=== PATIENT | male | born 1955 | race Caucasian/White ===

== ENCOUNTER → 2021-07-21 08:09 | Outpatient (CLI) | payer MEDICARE, SELFPAY ==
[2021-07-21 08:46] LABS: Chloride 103 mmol/L (98-107)
[2021-07-21 08:47] LABS: Potassium 4.1 mmoL/L (3.5-5.1); Sodium 135 mmol/L (136-145)
[2021-07-21 08:49] LABS: Alanine Aminotransferase 41 U/L (12-78); Albumin Level 4.4 g/dl (3.5-5.0); Albumin/Globulin Ratio 1.5 (1.1-1.8); Alkaline Phosphatase 65 U/L (38-126); Anion Gap 6.1 mEq/L (5-15); Aspartate Amino Transferase 40 U/L (17-59); Bilirubin,Total 0.8 mg/dl (0.2-1.3); Blood Urea Nitrogen 20 mg/dl (9-20); Carbon Dioxide 30 mmol/L (22.0-30.0); Estimated Glomerular Filt Rate 84 ml/min (>60); GFR (African American) 102 ML/MIN (>60); Globulin 2.9 g/dL (1.3-3.2); Total Protein,Serum 7.3 g/dl (6.3-8.2)
[2021-07-21 08:50] LABS: Calcium 8.5 mg/dl (8.4-10.2); Cholesterol 159 mg/dl (140-200); Glucose 107 mg/dl (74-100); Triglycerides 103 mg/dl (30-150); VLDL Cholesterol 21 mg/dL (0-40)
[2021-07-21 09:01] LABS: Direct LDL Cholesterol 66.37 mg/dL (100-129)
[2021-07-21 09:19] LABS: Chol/HDL Ratio 2.7 (1-3.5); HDL Cholesterol 60 mg/dl (40-60)
== END ==
PROVIDERS: Visit Provider Clinical Nurse Specialist Adult Health
DX: E78.5 Hyperlipidemia, unspecified (principal); Z79.899 Other long term (current) drug therapy
CPT/HCPCS: 36415; 80053; 80061

== ENCOUNTER → 2023-02-03 11:30 | Outpatient (CLI) | payer MEDICARE, SELFPAY ==
[2023-02-03 13:24] LABS: Prostate Specific Ag Screen 2.4 ng/ml (0.0-4.0)
== END ==
PROVIDERS: Visit Provider Urology
DX: Z12.5 Encounter for screening for malignant neoplasm of prostate (principal)
CPT/HCPCS: 36415; G0103

== ENCOUNTER 2023-04-28 12:47 | Emergency (ER) | payer MEDICARE, SELFPAY ==
--- NOTE | 2023-04-28 12:47 | ECG_ITS ---
APPROVED REPORT Exam: Resting ECG HR:55 bpm ECG Measurements Heart Rate 55 AXES MI 166 P 22 QRSd 100 QRS -16 QT 408 T -59 QTc 396 Conclusion SINUS BRADYCARDIA NONSPECIFIC T-WAVE ABNORMALITY BORDERLINE ECG UNCONFIRMED REPORT Electronically signed by : Rickey Rome MD 04/29/2023 18:27:03
[2023-04-28 12:48] VITALS: BP 156/80; PULSE 57; RESP 18; TEMP 36.7; O2SAT 97; BMI 24.2
--- NOTE | 2023-04-28 13:02 | HMH.EDGENADL ---
Discharge Plan Disposition Patient Disposition: Home, Self-Care Condition: Good Referrals Follow up/Referrals: Provider,Referral, MD [Primary Care Provider] - See instructions Activity Restrictions/Add. Instructions Additional Instructions/Restrictions: Please follow-up with your filler shredder.Please return to the emergency department if you experience any new or worsening symptoms. Clinical Impressions Clinical Impression: Chest pain Qualifiers: Chest pain type: unspecified Qualified Code(s): R07.9 - Chest pain, unspecified Instructions Patient Instructions: DI for Atypical Chest Pain Discharge ED Provider: Forest Nowak Adult HPI General Chief complaint: Chest Pain Stated complaint: Chest pressure Time Seen by Provider: 04/28/23 12:55 Mode of Arrival: Ambulatory Source of Information: Patient Limitations: No Limitations Description of Symptoms (Recalled from ER Triage Doc. by RN): PT REPORTS CHEST TIGHTNESS AND NUMBNESS OF BILATERAL HANDS, RIGHT MORE THAN LEFT. DENIES SHORTNESS OF BREATH, N/V. REPORTS MOVING FIREWOOD YESTERDAY History of Present Illness HPI narrative: The patient presents with a chief complaint of numbness in the hands and tightness in the chest that started this morning at approximately 5:30 AM. They report no prior history of similar symptoms and deny experiencing shortness of breath, fever, or chills. The patient has a history of a heart attack in 2005 and is currently under the regular care of a filler shredder. Their last echocardiogram was performed two years ago, yielding normal results. Symptoms began while running on an 80-degree day, which subsequently turned into cold chills and anxiety. The patient has a past medical history of an acute anxiety reaction in the 1980s but denies any recent stressors. They are taking daily medications for their heart, including 81 mg of aspirin, atorvastatin, ezetimibe, and metoprolol. Related Data Allergies Allergy/AdvReac Type Severity Reaction Status Date / Time No Known Allergies Allergy Verified 04/28/23 12:[address] [facility] Disclaimer: The information contained in this section may have been updated after the patient was seen, as this information can be updated by other users. Social History Smoking Status: Never smoker alcohol intake: former current occupational status: other Travel in the last 8 weeks: None ROS Obtained: Yes Systems reviewed as appropriate & no additional complaints except as documented As per HPI Physical Exam General General appearance: alert and in no apparent distress Head Head exam: atraumatic and normocephalic Eye Eye exam: Present normal appearance Neck Neck exam: Present normal inspection Chest Chest inspection: Present normal inspection and symmetric chest wall rise Respiratory Respiratory exam: Present normal lung sounds bilaterally; Absent respiratory distress Cardiovascular Cardiovascular exam: Present regular rate and normal rhythm Abdominal Exam Abdominal exam: Present soft Neurological Exam Neurological exam: Present alert and oriented X3 Psychiatric Psychiatric exam: Present normal affect and normal mood Skin Skin exam: Present warm and dry Medical Decision Making Medical Records Medical records reviewed: Yes I reviewed the patient's medical records. Clem Inquiry Pt receiving controlled substance: No Vital Signs: 04/28/23 12:48 04/28/23 13:30 04/28/23 15:44 Temperature 98.0 F 98.0 F Temperature Source Oral Pulse Rate 61 75 Pulse Rate [Apical] 57 L Respiratory Rate 18 17 17 Blood Pressure 132/77 128/73 Blood Pressure [Right Arm] 156/80 H Blood Pressure Mean 107 Blood Pressure Mean [Right Arm] 105 Blood Pressure Source [Right Arm] Automatic Cuff Blood Pressure Position [Right Arm] Sitting 02 Sat by Pulse Oximetry 97 96 Oxygen Delivery Method Room Air Room Air Room Air Lab Data Lab Results 04/28/23 12:52: WBC 7.0, RBC 4.82, Hgb 15.3, Hct 45.8
--- NOTE | 2023-04-28 13:11 | PC.NURSE ---
DR CLARKE AT BEDSIDE
--- NOTE | 2023-04-28 13:12 | XR_ITS ---
FINAL REPORT CLINICAL HISTORY: . FINDINGS: CHEST TWO-VIEW The lungs are clear. There is no evidence of effusion or other pleural disease. The mediastinum as a normal appearance. The cardiac silhouette is unremarkable. IMPRESSION: No acute findings. Reviewed, Interpreted and Dictated by Noni Dixon MD Transcribed by Eze Carl Authenticated and [facility]
[2023-04-28 13:20] LABS: Chloride 102 mmol/L (98-107); Sodium 138 mmol/L (136-145)
[2023-04-28 13:21] LABS: Basophils % 0.2 % (0.1-2.0); Eosinophils # 0.1 K/mm3 (0.0-0.4); Eosinophils % 1.2 % (0.1-12.0); Hematocrit 45.8 % (42.0-52.0); Hemoglobin 15.3 g/dL (14.1-18.0); Lymphocytes # 2.2 K/mm3 (0.7-4.5); Mean Corpuscular HGB Conc 33.3 g/dL (31.8-35.4); Mean Corpuscular Hemoglobin 31.6 pg (27.0-31.2); Mean Corpuscular Volume 94.9 fl (80-94); Mean Platelet Volume 7.6 fl (7.4-10.4); Monocytes # 0.6 K/mm3 (0.1-1.0); Monocytes % 8.7 % (1.7-9.3); Neutrophils # 4.1 K/mm3 (1.8-7.8); Neutrophils % 58.9 % (37.0-80.0); Platelet Count 278 K/mm3 (142-424); Red Blood Count 4.82 M/mm3 (4.60-6.20); Red Cell Distribution Width 13.3 % (11.5-17.5)
[2023-04-28 13:22] LABS: Alanine Aminotransferase 37 U/L (12-78); Aspartate Amino Transferase 39 U/L (17-59); Blood Urea Nitrogen 16 mg/dl (9-20); Creatinine Clearance Estimated 66 mL/min (50-200); Estimated Glomerular Filt Rate 83 ml/min (>60); GFR (African American) 101 ML/MIN (>60)
[2023-04-28 13:23] LABS: Albumin Level 4.9 g/dl (3.5-5.0); Albumin/Globulin Ratio 1.5 (1.1-1.8); Alkaline Phosphatase 77 U/L (38-126); Calcium 9.4 mg/dl (8.4-10.2); Carbon Dioxide 29 mmol/L (22.0-30.0); Globulin 3.3 g/dL (1.3-3.2); Glucose 114 mg/dl (74-100); Total Protein,Serum 8.2 g/dl (6.3-8.2)
[2023-04-28 13:30] VITALS: BP 132/77; PULSE 61; RESP 17; O2SAT 96
[2023-04-28 13:36] LABS: Troponin I < 0.01 ng/ml (0.00-0.034)
[2023-04-28 15:44] VITALS: BP 128/73; PULSE 75; RESP 17; TEMP 36.7; O2SAT 98
== END 2023-04-28 15:50 | disposition home or self-care (01) ==
PROVIDERS: Emergency Provider Emergency Medicine
DX: R07.9 Chest pain, unspecified (principal); R00.1 Bradycardia, unspecified; R20.0 Anesthesia of skin; Z86.79 Personal history of other diseases of the circulatory system
CPT/HCPCS: 71046; 80053; 84484; 85025; 93005; 99284

== ENCOUNTER 2023-11-10 16:09 | Outpatient (CLI) | payer MEDICARE, SELFPAY ==
[2023-11-10 17:30] LABS: Basophils % 0.6 % (0.1-2.0); Eosinophils # 0.2 K/mm3 (0.0-0.4); Eosinophils % 3.5 % (0.1-12.0); Hematocrit 43.3 % (42.0-52.0); Hemoglobin 14.5 g/dL (14.1-18.0); Lymphocytes # 1.6 K/mm3 (0.7-4.5); Lymphocytes % 27.8 % (10-50); Mean Corpuscular HGB Conc 33.4 g/dL (31.8-35.4); Mean Corpuscular Hemoglobin 31.5 pg (27.0-31.2); Mean Corpuscular Volume 94.2 fl (80-94); Mean Platelet Volume 7.9 fl (7.4-10.4); Monocytes # 0.6 K/mm3 (0.1-1.0); Monocytes % 9.7 % (1.7-9.3); Neutrophils # 3.4 K/mm3 (1.8-7.8); Neutrophils % 58.4 % (37.0-80.0); Platelet Count 226 K/mm3 (142-424); Red Cell Distribution Width 13.7 % (11.5-17.5); White Blood Count 5.8 K/mm3 (4.8-10.8)
[2023-11-10 17:53] LABS: Alanine Aminotransferase 25 U/L (12-78); Albumin Level 4.4 g/dl (3.5-5.0); Alkaline Phosphatase 64 U/L (38-126); Anion Gap 13.3 mEq/L (5-15); Aspartate Amino Transferase 27 U/L (17-59); Bilirubin,Indirect 0.7 mg/dL (0.0-0.9); Bilirubin,Total 0.7 mg/dl (0.2-1.3); Bilirubin,Unconjugated 0.8 mg/dL (0.0-1.1); Blood Urea Nitrogen 19 mg/dl (9-20); Calcium 9.4 mg/dl (8.4-10.2); Carbon Dioxide 26 mmol/L (22.0-30.0); Chloride 104 mmol/L (98-107); Chol/HDL Ratio 2.5 (1-3.5); Cholesterol 163 mg/dl (140-200); Estimated Glomerular Filt Rate 96 ml/min (>60); GFR (African American) 116 ML/MIN (>60); Glucose 96 mg/dl (74-100); HDL Cholesterol 66 mg/dl (40-60); Magnesium 2.1 mg/dl (1.6-2.3); Potassium 4.3 mmoL/L (3.5-5.1); Sodium 139 mmol/L (136-145); Total Protein,Serum 6.9 g/dl (6.3-8.2); Triglycerides 169 mg/dl (30-150); VLDL Cholesterol 34 mg/dL (0-40)
[2023-11-10 18:05] LABS: Direct LDL Cholesterol 69.49 mg/dL (100-129)
[2023-11-10 18:27] LABS: Free T4 (Free Thyroxine) 0.78 ng/dl (0.78-2.19)
[2023-11-11 10:17] LABS: Vitamin B12 770 pg/mL (239-931)
[2023-11-11 10:31] LABS: Folate > 20.00 ng/mL
== END 2023-11-10 23:59 | disposition home or self-care (01) ==
LOC: LAB 16:11
PROVIDERS: Physician Assistant; Visit Provider Internal Medicine
DX: I25.10 Atherosclerotic heart disease of native coronary artery without angina pectoris; R93.1 Abnormal findings on diagnostic imaging of heart and coronary circulation; I10 Essential (primary) hypertension; E78.5 Hyperlipidemia, unspecified; D75.89 Other specified diseases of blood and blood-forming organs; Z85.47 Personal history of malignant neoplasm of testis
CPT/HCPCS: 36415; 80048; 80061; 80076; 82607; 82746; 83735; 84439; 84443; 85025

== ENCOUNTER 2024-10-10 08:24 | Day surgery (SDC) | payer MEDICARE, SELFPAY ==
[2024-10-10 09:07] VITALS: BP 118/82; PULSE 48; RESP 16; TEMP 36.6; O2SAT 98; BMI 23.8
[2024-10-10] MEDS: LACTATED RINGERS 1000ML 1,000 ML 50 ML IV (09:19)
--- NOTE | 2024-10-10 09:27 | P.PNANES_ITS ---
[facility] Disclaimer: The information contained in this section may have been updated after the patient was seen, as this information can be updated by other users. Medical History (Updated 10/10/24 @ 09:12 by Britany Shore RN) History of heart attack Aortic regurgitation History of testicular cancer HLD (hyperlipidemia) HTN (hypertension) Coronary artery disease Abnormal nuclear cardiac imaging test Surgical History (Updated 10/10/24 @ 09:12 by Britany Shore RN) History of appendectomy History of hernia surgery Hx of colonoscopy Family History (Updated 10/10/24 @ 09:12 by Britany Shore RN) Other Heart attack Social History (Updated 10/10/24 @ 09:12 by Britany Shore RN) Smoking Status: Never smoker alcohol intake: current substance use type: denies use current occupational status: retired Travel in the last 8 weeks?: None caffeine: No [facility] Anesthesia Checklist Patient Identification Patient Identification: Arm Band Structural Data Admitted From: Home Planned Operative Procedure/s: Colonoscopy Consent for Planned Operative Procedure(s) Verified: Yes Verified Documents: Surgical Consent and History and Physical NPO Status Verified Time NPO: 00:00 Additional verifications Anesthesia Reactions: No Airway Assessment Mallampati Score:: Class II C-Spine Mobility Assessed: Yes TMJ Mobility Assessed: Yes Dentition: Good Dentition Neurological Assessment Level of Consciousness: Awake, Alert and Appropriate Anesthesia Plan Anesthesia Risk discussed: Yes Anesthesia Plan: Verified ASA Class: III Anesthesia Type: MAC
--- NOTE | 2024-10-10 09:53 | EXP.HP ---
History of Present Illness *Admission Date: 10/10/24 *Reason for visit:: Screening/surveillance *History of present illness: Mr. Gamboa is a 69-year-old gentleman who is here for screening/surveillance colonoscopy. The examination is deemed medically necessary for screening/surveillance colonoscopy. The patient has been seen, interviewed and examined prior to the procedure by both myself and the anesthesia provider. [facility] Disclaimer: The information contained in this section may have been updated after the patient was seen, as this information can be updated by other users. Medical History (Updated 10/10/24 @ 10:03 by Andreas Tidwell II, MD) History of heart attack Aortic regurgitation History of testicular cancer HLD (hyperlipidemia) HTN (hypertension) Coronary artery disease Abnormal nuclear cardiac imaging test Surgical History (Updated 10/10/24 @ 09:12 by Britany Shore RN) History of appendectomy History of hernia surgery Hx of colonoscopy Family History (Updated 10/10/24 @ 09:12 by Britany Shore RN) Other Heart attack Social History (Updated 10/10/24 @ 09:28 by René Alaniz CRNA) Smoking Status: Never smoker alcohol intake: current substance use type: denies use current occupational status: retired Travel in the last 8 weeks?: None caffeine: No Have you lived/traveled outside US in past 30 days?: No Contact w/someone who lives/traveled outside US past 30 days?: No Exposure to someone with infectious disease in past 14 days?: No Do you have a fever (greater than 100.4 F or 38 C)?: No Have you tested positive for COVID-19?: No Exposed to someone with COVID-19 in past 14 days?: No Do you have a sore throat?: No Do you have a cough?: No Do you have any weakness?: No Are you experiencing any nausea/vomitting?: No Do you have any diarrhea?: No Are you experiencing any unusual bleeding?: No Do you have any muscle aches/pain?: No Do you have any abdominal pain?: No Are you experiencing loss of taste or smell?: No Other Medical History Have you received the Pneumonia Vaccine: No Review of Systems Review of Systems Review of systems (narrative): Negative *Cardiovascular Comments: Negative *Gastrointestinal Comments: Negative *Genitourinary Comments: Negative *Musculoskeletal Comments: Negative *Neurologic Comments: Negative Meds Home Medications and Allergies Home Medications ?Medication ?Instructions ?Recorded ?Confirmed ?Type aspirin 81 mg tablet 81 mg PO DAILY 11/10/23 10/10/24 History atorvastatin 80 mg tablet 80 mg PO DAILY 11/10/23 10/10/24 History ezetimibe 10 mg tablet 10 mg PO DAILY 11/10/23 10/10/24 History metoprolol succinate 25 mg 25 mg PO DAILY #30 tabs 07/14/24 10/10/24 Rx tablet,extended release 24 hr (Toprol XL) sodium,potassium,mag sulfates 17.5 See Rx Instructions PO .COMPLEX 09/26/24 Rx gram-3.13 gram-1.6 gram oral soln #354 mL (Suprep Bowel Prep Kit) New Prescriptions to Start Prescriptions: Allergies Allergy/AdvReac Type Severity Reaction Status Date / Time No Known Allergies Allergy Verified 10/10/24 09:04 Exam Data for Last 24 hours Vital signs and Labs for Last 24 Hours: Temp Pulse Resp BP Pulse Ox O2 Del Method 97.8 F 48 L 16 118/82 98 Room Air 10/10/24 09:07 10/10/24 09:07 10/10/24 09:07 10/10/24 09:07 10/10/24 09:07 10/10/24 09:07 I & O for Last 24 hours: Intake & Output 10/07/24 10/08/24 10/09/24 10/10/24 23:59 23:59 23:59 23:59 Weight 148 lb *Routine HEENT Exam Head: Present normocephalic Eye: Present EOMI and PERRL ENT: Present mucous membranes moist *Routine Neck Exam Neck: Present supple *Routine Respiratory Exam Respiratory: Present CTA bilaterally *Routine Cardiovascular Exam Cardiovascular: Present RRR *Routine Abdominal Exam Abdominal: Present soft and normoactive bowel sounds; Absent tenderness *Routine Rectal Exam Rectal:: deferred *Routine Genitalia Exam Genitalia:: deferred *Routine Extremities Exam Extremities: Absent cyanosis, clubbing or edema *Routine Skin Exam Skin: Present warm; Absent rash *Routine Neurological Exam Neurological: Present alert and oriented X3 Assessment and Plan *Assessment and plan (1) Screening for colon cancer: Status: Acute Category: Medical Code(s): Z12.11 - Encounter for screening for malignant neoplasm of colon (2) History of testicular cancer: Status: Acute Category: Medical Code(s): Z85.47 - Personal history of malignant neoplasm of testis Plan A/P: 1. Screening for colon cancer is the preprocedural diagnosis. The patient will be anesthetized/sedated using MAC sedation. The patient has been seen and examined. Cardiac and lung assessment prior to the examination is stable. Proceed with planned surveillance colonoscopy.
[2024-10-10 09:59] VITALS: O2SAT 100
--- NOTE | 2024-10-10 10:04 | P.PCN_ITS ---
[facility] Procedure Note Date: 10/10/24 Time: 10:18 Procedure Note:: Colonoscopy Procedure Report: Colonoscopy with cold snare polypectomy Endoscopist: Andreas Tidwell II, MD Referring physician: BEATRICE Saxena Date of Procedure: October 10, 2024 Equipment: Olympus 190 variable stiffness pediatric colonoscope Sedation: MAC sedation Indication: Mr. Gamboa is a 69-year-old gentleman who is here for follow-up screening/surveillance colonoscopy. His last colonoscopy was in 2018 ([facility]) and was normal. 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 He has been in long-term remission. He reports no abdominal pain, weight loss, change in his bowel habits or rectal bleeding. He reports no family history of colon cancer. Procedure: Prior to the procedure, a history and physical exam was performed, and patient's medications and allergies were reviewed. The risks, benefits and alternatives of the sedation and procedure were discussed with the patient. All questions were answered and informed consent was obtained. The patient was brought to the procedure room. Patient identification and proposed procedure were verified by the physician and the nurse. The patient was placed in a left lateral decubitus position and the scope was passed under direct vision. Throughout the procedure, the patient's blood pressure, pulse, and oxygen saturations were monitored continuously. The colonoscopy was accomplished without difficulty. The patient tolerated the procedure well. Findings: On digital rectal examination there was normal rectal tone. There were no external hemorrhoids. The prostate was 2+, smooth, soft, symmetric without nodules. The colonoscope was introduced through the anal canal to the rectum and advanced to the cecum. The ileocecal valve and appendiceal orifice were identified. The scope was advanced a short distance into the ileum which appeared grossly normal. The scope was then withdrawn into the colon. There was a single 3 to 4 mm polyp in the ascending colon removed via cold snare polypec vivek. The remaining cecum, ascending, transverse, descending, sigmoid and rectum were grossly normal. There were no other mucosal abnormalities identified. Upon retroflexion within the rectum there were grade 1-2 internal hemorrhoids. The preparation was excellent throughout with [place] Preparation Score of 9. The cecal time was 12 minutes. Impression: 1. Diminutive 3 to 4 mm ascending polyp 2. Grade 1-2 internal hemorrhoids Plan: I will follow-up the polyp histology and recommend repeat surveillance colonoscopy again in 7 to 10 years based upon the pathology.
[2024-10-10 10:23] VITALS: BP 96/60; PULSE 61; RESP 16; TEMP 36.6; O2SAT 96
[2024-10-10 10:33] VITALS: BP 103/63; PULSE 54; RESP 16; TEMP 36.2; O2SAT 96
[2024-10-10 10:43] VITALS: BP 100/61; PULSE 52; RESP 18; TEMP 36.1; O2SAT 99
[2024-10-10 10:53] VITALS: BP 112/72; PULSE 50; RESP 18; TEMP 36; O2SAT 100
== END 2024-10-10 11:12 | disposition home or self-care (01) ==
PROVIDERS: PCP Nurse Practitioner Family; Visit Provider Internal Medicine Gastroenterology
PROC: 0DJD8ZZ Inspection of Lower Intestinal Tract, Via Natural or Artificial Opening Endoscopic (ICD-10-PCS; CPT 45378; principal; 2024-10-10 10:00)
DX: Z12.11 Encounter for screening for malignant neoplasm of colon (principal); Z85.47 Personal history of malignant neoplasm of testis; K63.5 Polyp of colon; K64.8 Other hemorrhoids
CPT/HCPCS: 45385; J7120

== ENCOUNTER 2024-10-19 10:04 | Outpatient (CLI) | payer MEDICARE, SELFPAY ==
[2024-10-19 10:26] LABS: Basophils % 0.4 % (0.1-2.0); Eosinophils # 0.1 Kmm3 (0.0-0.4); Eosinophils % 2.2 % (0.1-12.0); Hematocrit 40.6 % (42.0-52.0); Hemoglobin 13.6 g/dL (14.1-18.0); Immature Granulocytes # 0.01 10^3uL; Immature Granulocytes % 0.2 %; Lymphocytes # 1.6 K/mm3 (0.7-4.5); Lymphocytes % 29.1 % (10-50); Mean Corpuscular HGB Conc 33.5 g/dL (31.8-35.4); Mean Corpuscular Hemoglobin 30.8 pg (27.0-31.2); Mean Corpuscular Volume 92.1 fl (80-94); Mean Platelet Volume 8.9 fl (7.4-10.4); Monocytes # 0.6 K/mm3 (0.1-1.0); Monocytes % 9.9 % (1.7-9.3); Neutrophils # 3.2 K/mm3 (1.8-7.8); Neutrophils % 58.2 % (37.0-80.0); Nucleated Red Blood Cells # 0 10^3/uL; Nucleated Red Blood Cells % 0 %; Platelet Count 270 K/mm3 (142-424); Red Blood Count 4.41 M/mm3 (4.60-6.20); Red Cell Distribution Width 12.7 % (11.5-17.5); Red Cell Distribution Width-SD 42.4 fL; White Blood Count 5.6 K/mm3 (4.8-10.8)
[2024-10-19 10:36] LABS: Alanine Aminotransferase 23 U/L (12-78); Albumin Level 4.3 g/dl (3.5-5.0); Alkaline Phosphatase 63 U/L (38-126); Anion Gap 8.4 mEq/L (5-15); Aspartate Amino Transferase 33 U/L (17-59); Blood Urea Nitrogen 17 mg/dl (9-20); Calcium 9.1 mg/dl (8.4-10.2); Carbon Dioxide 28 mmol/L (22.0-30.0); Chloride 107 mmol/L (98-107); Chol/HDL Ratio 2.1 (1-3.5); Cholesterol 120 mg/dl (140-200); Estimated Glomerular Filt Rate 95 ml/min (>60); GFR (African American) 115 ML/MIN (>60); Glucose 99 mg/dl (74-100); HDL Cholesterol 56 mg/dl (40-60); Potassium 4.4 mmoL/L (3.5-5.1); Sodium 139 mmol/L (136-145); Total Protein,Serum 6.9 g/dl (6.3-8.2); Triglycerides 102 mg/dl (30-150); VLDL Cholesterol 20 mg/dL (0-40)
[2024-10-19 10:47] LABS: Direct LDL Cholesterol 41.97 mg/dL (100-129)
[2024-10-19 11:07] LABS: Thyroid Stimulating Hormone 2.94 uIU/mL (0.465-4.68)
[2024-10-19 11:33] LABS: Free T4 (Free Thyroxine) 0.76 ng/dl (0.78-2.19)
== END 2024-10-19 23:59 | disposition home or self-care (01) ==
LOC: LAB 10:05
PROVIDERS: PCP Nurse Practitioner Family; Visit Provider Internal Medicine
DX: I35.1 Nonrheumatic aortic (valve) insufficiency (principal); E78.49 Other hyperlipidemia; I10 Essential (primary) hypertension; I25.10 Atherosclerotic heart disease of native coronary artery without angina pectoris
CPT/HCPCS: 36415; 80048; 80061; 80076; 84439; 84443; 85025

== ENCOUNTER 2024-10-25 08:02 | Outpatient (CLI) | payer MEDICARE, SELFPAY ==
--- NOTE | 2024-10-25 08:00 | CA_ITS ---
APPROVED REPORT EXAM: Comprehensive 2D, Doppler, and color-flow Echocardiogram Sports Book Writer: Patti Sewell CRT Ht: 5 ft 6 in Wt: 151lbs BSA: 1.77 BP: 104/68 mmHg Indications: CAD, Hyperlipidemia, Hypertension/HDD Mild to mod AI per echo from outside hospital 2D Dimensions LA Volume 37.30 mL LA Volume Index 20.50 mL/m2 (M/F) 16-34 M-Mode Dimensions RVDd 2.69 cm (0.9-2.6) LA Diam 3.12 cm (1.9-4.0) LVDd 4.80 cm (3.5-5.7) LVDs 3.14 cm (3.5-5.7) IVSd 1.14 cm (0.6-1.1) PWd 0.91 cm (0.6-1.1) EF (Teich) 63.60% FS 34.60% EDV (Teich) 107.50 mL TAPSE 1.98 (<1.7) ESV (Teich) 39.10 mL LV Diastology E Decel Time 297 (160-240 msec) E/A Ratio 0.54 MED A' 11.20 cm/s LAT A' 11.10 cm/s Aortic Valve AI PHT 605.00 ms AO Peak GR. 17.20 mmHg Mitral Valve MV A Velocity 80.0 (40-130 cm/s) E/A Ratio 0.54 Pulmonary Valve PV Peak Velocity 150.0 (50-150 cm/s) Tricuspid Valve TR P. Velocity 231.00 cm/s RAP Estimate 10.00 mmHg RVSP 31.40 mmHg Left Ventricle The left ventricle is normal size. The left ventricular systolic function is normal. The left ventricular ejection fraction is within the normal range. There is normal left ventricular wall thickness. There is normal LV segmental wall motion. The left ventricular diastolic function is normal. LVEF is 55%. Right Ventricle The right ventricle is normal size. The right ventricular systolic function is normal. Atria Left atrium is mildly dilated. Right atrium is mildly dilated. There is no Doppler evidence of interatrial shunt. Aortic Valve The aortic valve is mildly thickened. Aortic sclerosis is present, but no evidence of hemodynamically significant aortic stenosis. Mild aortic regurgitation. Mitral Valve The mitral valve leaflets are mildly thickened. No evidence of mitral valve stenosis. Mild mitral regurgitation. Tricuspid Valve Tricuspid valve is grossly normal in structure and function. Mild tricuspid regurgitation. RVSP is 20-25 mmHg. Pulmonic Valve The pulmonary valve is normal in structure. Mild pulmonic regurgitation. Great Vessels The aortic root is normal in size. The ascending aorta is borderline dilated, measuring 3.7 cm in diameter. IVC is normal in size and collapses >50% with inspiration. Pericardium There is no pericardial effusion. Other Information Study Quality: Fair Conclusion Normal biventricular systolic function. Mild biatrial dilation. Mild AR, mild MR, mild TR, mild PI. The ascending aorta is borderline dilated, measuring 3.7 cm in diameter. Electronically signed by : Belinda Gonzáles MD 10/30/2024 22:45:29
== END 2024-10-25 23:59 | disposition home or self-care (01) ==
LOC: RT 08:04
PROVIDERS: PCP Nurse Practitioner Family; Visit Provider Internal Medicine
DX: I08.8 Other rheumatic multiple valve diseases (principal); I11.9 Hypertensive heart disease without heart failure; I25.10 Atherosclerotic heart disease of native coronary artery without angina pectoris; E78.5 Hyperlipidemia, unspecified; I77.810 Thoracic aortic ectasia
CPT/HCPCS: 93306

== ENCOUNTER 2025-02-18 09:24 | Outpatient (CLI) | payer MEDICARE, SELFPAY ==
--- OUTSIDE RECORDS SUMMARY | 2024-09-03 17:30 | XMS_ITS ---
Author Organization [facility] Address [address] [address] [place] [address] Care Team Providers Care Mri Tech Name Role Phone Tamela Shore Primary Care Provider TAMELA SHORE Unavailable Unavaila ble Migration, Provider Unavailable Unavailable REASON FOR VISIT [facility] To [facility] Conversion Encounter Medications Medication SIG (Take, Route, Frequency, Duration) Notes Start Date End Date Status Atorvastatin Calcium 80 MG 1 tab(s) oral ly once a day Active Metoprolol Succinate ER 25 MG 1/2 tab(s) orally twice a day Active Ezetimibe 10 MG 1 tab(s) orally once a day Active Aspirin 81 MG 1 tab(s) orally once a day Active Encounters Encounter Location Date Provider Diagnosis [facility] [address] [place] [address] [address] [place] [address] 09/03/2024 Provider Migration Plan Of Treatment Next Appt Details Provider Name:Tamela Brandt ce, 02/23/2025 09:15:00 AM, [address] [place] [address], [place], [place], [address], Progress Notes * Dov RODRIGUEZDOB:[birth year] (69 yo M)Acc No.[id number]:09/03/2024 Patient: Cassidy Dov LOPEZ Provider: Silver simeon Migration :1955 A ge:69 Y S ex:Male Date:09/03/2024 Address:[address] [place] [address] [place], [id number] Pcp:Tamela Shore Subjective: * Chief Complaints: * 1 . [facility] To [facility] Conversion Encounter. * Medical History: * Medications: T aking Aspirin 81 MG Tablet Delayed Release 1 tab(s) orally once a day , Taking Ezetimibe 10 MG Tablet 1 tab(s) orally once a day , Taking Metoprolol Succinate ER 25 MG Tablet Extended Release 24 Hour 1/2 tab(s) orally twice a day , Taking Atorvastatin Calcium 80 MG Tablet 1 tab(s) orally once a day Objective: * Vitals: Assessment: Plan: * Treatment: * * Electronic signature of Ashkan aj Migration on 02/18/2025 at 09:31 AM EDT Sign off status: Pending * Provider: Silver simeon Migration Date: 0 09/03/2024 Generated for Jason tobias/Gary/Chrissy on: 0 02/18/2025 09:31 AM EDT
--- OUTSIDE RECORDS SUMMARY | 2024-12-21 09:00 | XMS_ITS | Encounter Summary ---
Author Organization [facility] Address [address] [place] [address] Care Team Providers Care Cheerleading Coach Name Role Phone Tamela Shore APRN Primary Care Provid er Reason for Visit * Reason Comments Follow-up 6 month Encounter Details Date Type Department Care Team (Late st Contact Info) Description 12/21/2024 9:00 AM EDT Office Visit [facility] [address] [facility] [place] [address] Randell Multani MD [address] [facility] [address] [place] [address] Coronary artery disease involving [place] coronary artery of [place] heart without angina pectoris (Primary Dx) Social History Tobacco Use Types Packs/Day Years Used Date Smoking Tobacco: Never Smokeless Tobacco: Never Tobacco Cessation:Counseling Given: Not Answered Alcohol Use Standard Drinks/Week Comments Yes 0 (1 standard drink = 0.6 oz pur e alcohol) ON OCCASION Sex and Gender Information Value Date Recorded Sex Assigned at Not on file Legal Sex Male 8:33 PM EDT Gender Identity Not on file Sexual Orientation Not on file documented as of this encounter Last Filed Vital Signs Vital Sign Reading Time Taken Comments Blood Pressure 110/69 12/21/2024 9:06 AM EDT Pulse 50 12/21/2024 9:06 AM EDT Temperature - - Respiratory Rate - - Oxygen Saturation 95% 12/21/2024 9:06 AM EDT Inhaled Oxygen Concentration - - Weight 66.7 kg (147 lb) 12/21/2024 9:06 AM EDT Height 167.6 cm (5' 6 ) 12/21/2024 9:06 AM EDT Body Mass Index 23.73 12/21/2024 9:06 AM EDT documented in this encounter Progress Notes * Randell Multani MD - 12/21/2024 9:00 AM EDT Subjective: Encounter Date:12/21/2024 Primary Care Physician: Tamela Shore APRN Patient ID: Dov Gamboa is a 69 y.o. male. Chief Complaint:Follow-up (6 month ) PROBLEM LIST: Coronary artery disease History of Inferior STEMI 2005 with intervention in [place]. Incomplete database. Normal MPS 2015, no ischemia. Previous inferior infarct ejection fraction 61% 05/07/2020 normal routine GXT 05/07/2020 echo EF 60%. Mild and mild AR. 05/26/2023 echo EF 60%. Mild . Mean gradient 13 mmHg. Mild to moderate aortic regurgitation. MildMR. 08/11/23 MPS with mixture of ischemia and scar in the inferior wall. Normal EF Hypertension Dyslipidemia Arthritis Testicular cancer Surgeries: Testicular surgery for cancer Left inguinal hernia repair No Known Allergies Current Outpatient Medications: aspirin 81 MG EC tablet, Take 1 tablet by mouth Daily., Disp: , Rfl: atorvastatin (LIPITOR) 80 MG tablet, Take 1 tablet by mouth once daily, Disp: 90 tablet, Rfl: 0 diclofenac (VOLTAREN) 75 MG EC tablet, Take 1 tablet by mouth 2 (Two) Times a Day., Disp: , Rfl: ezetimibe (ZETIA) 10 MG tablet, Take 1 tablet by mouth once daily, Disp: 90 tablet, Rfl: 3 metoprolol tartrate (LOPRESSOR) 25 MG tablet, Take 1/2 (one-half) tablet by mouth twice daily (Patient taking differently: Take 1 tablet by mouth Daily.), Disp: 90 tablet, Rfl: 3 History of Present Illness Patient returns today for 6-month follow-up of coronary artery disease and abnormal stress test. H[place] wade very active walking briskly every morning. No exertional complaints. Some mild intermittent dyspnea but not consistent related to exertion. No anginal type chest pain. The following portions of the patient's history were reviewed and updated as appropriate: allergies, current medications, past family history, past medical history, past social history, past surgicalhistory and problem list. Social History Tobacco Use Smoking status: Never Smokeless tobacco: Never Vaping Use Vaping status: Never Used Substance Use Topics Alcohol use: Yes Comment: ON OCCASION Drug use: No ROS Objective: BP 110/69 Pulse 50 Ht 167.6 cm (66 ) Wt 66.7 kg (147 lb) SpO2 95% BMI 23.73 kg/m?? Vitals reviewed. Constitutional: Appearance: Well-developed and not in distress. Neck: Thyroid: No thyromegaly. Vascular: No carotid bruit or JVD. Pulmonary: Breath sounds: Normal breath sounds. Cardiovascular: Regular rhythm. No gallop. No S3 and S4 gallop. Pulses: Intact distal pulses. Carotid: 2+ bilaterally. Radial: 2+ bilaterally. Edema: Peripheral edema absent. Abdominal: General: Bowel sounds are normal. Palpations: Abdomen is soft. There is no abdominal mass. Tenderness: There is no abdominal tenderness. Musculoskeletal: General: No deformity. Extremities: No clubbing present.Skin: General: Skin is warm and dry. Findings: No rash. Neurological: Mental Status: Alert and oriented to person, place, and time. Procedures Assessment: Assessment & Plan Diagnoses and all orders for this visit: 1. Coronary artery disease involving [place] coronary artery of [place] heart without angina pectoris(Primary) 1. Coronary artery disease, 19 years post STEMI and stenting. Mildly abnormal MPS last year, but functional class I without angina. 2. Hypertension well-controlled 3. Dyslipidemia on high intensity statin and Zetia Recommendations: 1. Once again discussed mildly abnormal stress test. At this time he is asymptomatic, therefore we will continue medical therapy. 2. Discussed anginal type symptoms or exertional symptoms with his to seek medical attention. If hedevelops these, he would then consider cardiac cath/revascularization. 3. Continue current medical therapy 4. Revisit annually or as needed symptom change Randell Multani MD Advance Care Planning ACP discussion was held with the patient during this visit. Patient does not have an advance directive, declines further assistance. Dictated utilizing Dragon dictation documented in this encounter Plan of Treatment Upcoming Encounters Date Type Department Care Team (Late st Contact Info) Description 12/20/2025 9:15 AM EDT Office Visit [facility] [address] [facility] [place] [address] Sana Melendrez, AJAY [address] [facility] [address] [place] [address] documented as of this encounter Visit Diagnoses Diagnosis Coronary artery disease involving [place] coronary artery of [place] heart without angina pectoris- Primary documented in this encounter Care Teams Cheerleading Coach Relationship Specialty Start Date End Date Tamela Shore APRN [address] [facility] [address] [place] [address] PCP - General Family Medicine 08/12/24 documented as of this encounter
--- OUTSIDE RECORDS SUMMARY | 2025-02-01 09:01 | XMS_ITS ---
Author Organization [facility] Address [address] [facility] [address] [facility] [address] [place] [address] Care Team Providers Care Assurance Sourcing Manager Name Role Phone Tamela Shore Primary Care Provider TAMELA SHORE Unavailable Unavaila ble REASON FOR VISIT Lab Order Encounters Encounter Location Date Provider Diagnosis [facility] [address] [place] [address] [place], [place] [address] 02/01/2025 Tamela Shore Coronary artery disease involving [place] coronary artery of [place] heart without angina pectoris I25.10 ; Mixed dyslipidemia E78.2 and Mild anemia D64.9 Assessments Encounter Date Diagnosis (ICD Code) Assessment Notes Treatment Notes Treatment Clinical Notes Section Notes 02/01/2025 Coronary artery disease involving [place] coronary artery of [place] heart without angina pectoris (ICD-10 - I25.10) 02/01/2025 Mixed dyslipidemia (ICD-10 - E78.2) 02/01/2025 Mild anemia (ICD-10 - D64.9) Plan Of Treatment Pending Test Test Name Order Date M-Complete Blood Count Auto Diff 025 M-Comprehensive Metabolic Panel 02/02/20 25 M-Hemoglobin A1C 02/01/2025 M-Ferritin 02/01/2025 M-Lipid Panel 02/01/2025 M-Free T4 (Free Thyroxine) 02/01/2025 M-Thyroid Stimulating Hormone 02/01/2025 M-Vitamin B12 02/01/2025 M-Folate 02/01/2025 M-Iron and TIBC 02/01/2025 Next Appt Details Provider Name:Tamela Brandt ce, 02/23/2025 09:15:00 AM, [address] [place] [address], [place], [address], Progress Notes * Dov RODRIGUEZDOB:[birth year] (69 yo M)Acc No.[id number]:02/01/2025 Patient: Dov BASURTO :1955 A ge:69 Y S ex:Male Address:[facility] [facility] [address], [place] [address] Subjective: * Chief Complaints: * L ab Order * Medical History: * Surgical History: * Hospitalization/Major Diagno stic Procedure: * Medications: Objective: * Vitals: * Physical Examination: Assessment: * Assessment: 1. C oronary artery disease involving [place] coronary artery of [place] heart without angina pectoris - I25.10 (Primary) 2 . M ixed dyslipidemia - E78.2 3 .?Mild anemia - D64.9 Plan: * Treatment: 2. M ixed dyslipidemia L AB: M-Complete Blood Count Auto Diff L AB: M-Comprehensive Metabolic Panel L AB: M-Hemoglobin A1C L AB: M-Ferritin L AB: M-Lipid Panel L AB: M-Free T4 (Free Thyroxine) L AB: M-Thyroid Stimulating Hormone L AB: M-Vitamin B12 L AB: M-Folate L AB: M-Iron and TIBC 3. M ild anemia L AB: M-Complete Blood Count Auto Diff L AB: M-Comprehensive Metabolic Panel L AB: M-Hemoglobin A1C L AB: M-Ferritin L AB: M-Lipid Panel L AB: M-Free T4 (Free Thyroxine) L AB: M-Thyroid Stimulating Hormone L AB: M-Vitamin B12 L AB: M-Folate L AB: M-Iron and TIBC * Procedure Codes: * true * Date: Generated for Printi ng/Faporfiriog/eTransmitting on: 0 02/18/2025 09:31 AM EDT
--- OUTSIDE RECORDS SUMMARY | 2025-02-18 09:31 | XMS_ITS | Clinical Summary ---
Author Organization [facility] Address [address] [place] [address] Care Team Providers Care Foot Caster Name Role Phone Tamela Shore APRN Primary Care Provid er Allergies No known active allergies Medications aspirin 81 MG EC tablet Take 1 tablet by mouth Daily. Active diclofenac (VOLTAREN) 75 MG EC tablet Take 1 tablet by mouth 2 (Two) Times a Day. 05/22/2021 Active ezetimibe (ZETIA) 10 MG tablet Take 1 tablet by mouth once daily 90 tablet 3 08/29/2024 Active metoprolol tartrate (LOPRESSOR) 25 MG tablet Take 1 tablet by mouth Daily. 90 tablet 3 12/21/2024 Active atorvastatin (LIPITOR) 80 MG tablet Take 1 tablet by mouth once daily 90 tablet 01/03/2025 Active Active Problems Problem Noted Date Diagnosed Date Abnormal nuclear stress test 09/09/2023 Pure hypercholesterolemia 07/02/2021 Primary hypertension 07/02/2021 Coronary artery disease invo lving [place] coronary artery of [place] heart without angina pectoris 07/02/2021 Encounters Date Type Department Care Team Description 01/03/2025 Refill [facility] [address] [place] [address] Randell Multani MD Med Refill 12/29/2024 Travel 12/21/2024 9:00 AM EDT Office Visit [facility] [address] [place] [address] Randell Multani MD Coronary artery disease involving [place] coronary artery of [place] heart without angina pectoris (Primary Dx) 12/21/2024 Refill [facility] [address] [facility] [address] [place] [address] Randell Multani MD Med Refill 12/21/2024 Refill [facility] [address] [facility] [address] [place] [address] Randell Multani MD Med Refill 12/21/2024 Travel from Last 3 Months Family History Medical History Relation Name Comments Lung disease Father No Known Problems Mother Relation Name Status Comments Father Mother Social History Tobacco Use Types Packs/Day Years [...] on file Sexual Orientation Not on file Last Filed Vital Signs Vital Sign Reading Time Taken Comments Blood Pressure 110/69 12/21/2024 9:06 AM EDT Pulse 50 12/21/2024 9:06 AM EDT Temperature 36.8 C (98.2 F) 03/25/2017 8:36 PM EDT Respiratory Rate 20 08/06/2022 10:34 AM EST Oxygen Saturation 95% 12/21/2024 9:06 AM EDT Inhaled Oxygen Concentration - - Weight 66.7 kg (147 lb) 12/21/2024 9:06 AM EDT Height 167.6 cm (5' 6 ) 12/21/2024 9:06 AM EDT Body Mass Index 23.73 12/21/2024 9:06 AM EDT Plan of Treatment Upcoming Encounters Date Type Department Care Team (Late st Contact Info) Description 12/20/2025 9:15 AM EDT Office Visit [facility] [address] [place] [address] Sana Melendrez APRN [address] [facility] [address] [place] [address] Health Maintenance Due Date Last Done Comments TDAP/TD VACCINES (1 - Tdap) 1972 COLOGUARD 1998 COLON CANCER SCREENING 5 YEA R SIGMOIDOSCOPY 1998 COLONOSCOPY 1998 [address] CANCER SCREENING 1998 CT COLONOGRAPHY 1998 FECAL OCCULT BLOOD TEST 1998 FIT Testing (1 year) 1998 Pneumococcal Vaccine 50+ (1 of 1 - PCV) 2003 ZOSTER VACCINE (1 of 2) 2003 ANNUAL WELLNESS VISIT 06/23/2019 HEPATITIS C SCREENING 06/23/2019 LIPID PANEL 07/15/2023 07/15/2022 INFLUENZA VACCINE 12/30/2024 COVID-19 Vaccine ( season) 2025, 09/04/2020 Procedures Procedure Name Priority Date/Time Associated Diagnosis Comments LIPID PANEL Routine 07/15/2022 9:50 AM EST Pure hypercholesterolemia from Last 3 Months or Most Recently Relevant to Health Maintenance Results * (ABNORMAL) Lipid Panel (07/15/2022 9:50 AM EST) Total Cholesterol 140 0 - 200 mg/dL 07/16/2022 2:17 AM EST [facility] Triglycerides 80 0 - 150 mg/dL 07/16/2022 2:17 AM EST [facility] HDL Cholesterol 69(H) 40 - 60 mg/dL 07/16/2022 2:17 AM EST [facility] LDL Cholesterol 56 0 - 100 mg/dL 07/16/2022 2:17 AM EST [facility] VLDL Cholesterol 15 5 - 40 mg/dL 07/16/2022 2:17 AM EST [facility] LDL/HDL Ratio 0.80 07/16/2022 2:17 AM EST [facility] Blood Venipuncture / Unknown 07/15/2022 9:50 AM EST 07/15/2022 9:58 AM EST [facility] - 07/16/2022 2:17 AM EST Cholesterol Reference Ranges (U.S. Department of Health and Human Services ATP III Classifications) Desirable <200 mg/dL Borderline High 200-239 mg/dL High Risk >240 mg/dL Triglyceride Reference Ranges (U.S. Department of Health and Human Services ATP III Classifications) Normal <150 mg/dL Borderline High 150-199 mg/dL High 200-499 mg/dL Very High >500 mg/dL HDL Reference Ranges (U.S. Department of Health and Human Services ATP III Classifications) Low <40 mg/dl (major risk factor for CHD) High >60 mg/dl ('negative' risk factor for CHD) LDL Reference Ranges (U.S. Department of Health and Human Services ATP III Classifications) Optimal <100 mg/dL Near Optimal 100-129 mg/dL Borderline High 130-159 mg/dL High 160-189 mg/dL Very High >189 mg/dL Randell Multani MD LAB BLOOD ORDERABLES Final Res ult [facility]
[address] [place] [address], from Last 3 Months or Most Recently Relevant to Health Maintenance Insurance MEDICARE A & [facility] OPTIONS Care Teams Foot Caster Relationship Specialty Start Date End Date Jamshid Shoreah [place], AJAY [address] [place] [address] [facility] [address] [place] [address] PCP - General Family Medicine 08/12/24
--- OUTSIDE RECORDS SUMMARY | 2025-02-18 09:32 | XMS_ITS | Encounter Summary ---
Author Organization [facility] Address [address] [place] [address] Care Team Providers Care Funnel Setter Name Role Phone Tamela Shore AJAY Primary Care Provid er Reason for Visit * Reason Onset Date Comments Med Refill 12/21/2024 Encounter Details Date Type Department Care Team (Late st Contact Info) Description 12/21/2024 Refill [facility] [address] [facility] [address] [place] [address] Randell Multani MD [address] [facility] [address] [place], [place] [id number] Med Refill Social History Tobacco Use Types Packs/Day Years Used Date Smoking Tobacco: Never Smokeless Tobacco: Never Alcohol Use Standard Drinks/Week Comments Yes 0 (1 standard drink = 0.6 oz pur e alcohol) ON OCCASION Sex and Gender Information Value Date Recorded Sex Assigned at Not on file Legal Sex Male 8:33 PM EDT Gender Identity Not on file Sexual Orientation Not on file documented as of this encounter Plan of Treatment Upcoming Encounters Date Type Department Care Team (Late st Contact Info) Description 12/20/2025 9:15 AM EDT Office Visit [facility] [address] [place] [address] Sana Melendrez APRN [address] [facility] [address] [place] [address] documented as of this encounter Visit Diagnoses Not on filedocumented in this encounter Care Teams Funnel Setter Relationship Specialty Start Date End Date Tamela Shore APRN [address] [facility] [address] [place] [address] PCP - General Family Medicine 08/12/24 documented as of this encounter
--- OUTSIDE RECORDS SUMMARY | 2025-02-18 09:32 | XMS_ITS | Encounter Summary ---
Author Organization [facility] Address [address] [place] [address] Care Team Providers Care Door Closer Name Role Phone MoneTamela Spring MOSS Primary Care Provid er Encounter Details Date Type Department Care Team (Latest Contact Info) Description 12/21/2024 Travel Social History Tobacco Use Types Packs/Day Years [...] Description 12/20/2025 9:15 AM EDT Office Visit [facility] [address] [place] [address] Sana Melendrez APRN [address] [facility] [address] [place] [address] documented as of this encounter Visit Diagnoses Not on filedocumented in this encounter Care Teams Door Closer Relationship Specialty Start Date End Date Tamela Shore APRN [address] [place] [address] PCP - General Family Medicine 08/12/24 documented as of this encounter
--- OUTSIDE RECORDS SUMMARY | 2025-02-18 09:32 | XMS_ITS | Encounter Summary ---
Author Organization [facility] Address [address] [place] [address] Care Team Providers Care Leg Man Name Role Phone Tamela Shore APRN Primary Care Provid er Reason for Visit * Reason Comments Med Refill Encounter Details Date Type Department Care Team (Late Contact Info) Description 01/03/2025 Refill [facility] [address] [facility] [address] [place] [address] Randell Multani MD [address] [facility] [address] [place], [place] [id number] Med Refill Social History Tobacco Use Types [...] Description 12/20/2025 9:15 AM EDT Office Visit [facility] [address] [place] [address] Sana Melendrez APRN [address] [facility] [address] [place], [place] [id number] documented as of this encounter Visit Diagnoses Not on filedocumented in this encounter Care Teams Leg Man Relationship Specialty Start Date End Date Tamela Shore, EXTRAS CASTING DIRECTOR [address] [place] [address] [place] [address] PCP - General Family Medicine 08/12/24 documented as of this encounter
--- OUTSIDE RECORDS SUMMARY | 2025-02-18 09:32 | XMS_ITS | Patient Health Record ---
Author Organization [facility] Address [address] [place] [facility] [address] [facility] [address] [place] [address] Care Team Providers Care Academic Advisor Name Role Phone Tamela Shore Primary Care Provider TAMELA SHORE Unavailable Unavaila Rickey Love Unavailable [phone] Migration, Provider Unavailable Unavailable Allergies No Known Allergies Reason For Referral Reason Dr Tidwell for vivek roche c-scope after Jun.01 Diagnosis 1 Medicare annual well ness visit, subsequent (Z00.00) Referral Organization [facility]UCKIE MACK Referring Provider First Name Tamela Referring Provider Last Name Mone Referring Provider Speciality Family Gregor ctice Referred Organization [facility] Referred Address [address] [facility] [address] [facility] Referred Provider Specialty Gastroentero logy General Notes Sonya Batista 2023 12:41:59 PM >Sent to Dr. Tidwell Referral Priority Routine Reason Dermatology - brown spot on buttocks Referral Organization [facility] CHUCKIE MACK Referring Provider First Name Tamela Referring Provider Last Name Mone Referring Provider Speciality Family Pra ctice Referred Organization [facility] Referred Address [address] [place], [place],[address],[place] Referred Provider Specialty Dermatology General Notes Sonya Batista 2024 11:51:00 AM >faxed office notes last week. , Also sent to [facility] Referral Priority Routine Medications Medication SIG (Take, Route, Frequency, Duration) Notes Start Date End Date Status Metoprolol Succinate ER 25 MG 1 tab orally Once a day Acti ve Atorvastatin Calcium 80 MG 1 tab(s) oral ly once a day Active Aspirin 81 MG 1 tab(s) orally once a day Active Ezetimibe 10 MG 1 tab(s) orally once a day Active Social History Tobacco Use: Social History Observation Description Date Details (start date - stop date) Never Smoker NA - NA Tobacco Control (Standard) Question Answer Notes Tobacco use: Nonsmoker Problems Problem Type SNOMED Code ICD Code Onset Dates Problem Status W/U Status Risk Notes Problem Atherosclerotic heart disease of [place] coronary artery without angina pectoris (479277654223069) Coronary artery disease involving [place] coronary artery of [place] heart without angina pectoris (I25.10) Active confirmed Problem Aortic valve disorder (0802883) Nonrheumatic aortic valve insufficiency (I35.1) Active confirmed Problem Mixed hyperlipidemia (166524936) Mixed dyslipidemia (E78.2) Active confirmed Problem Anemia (561409857) Mild anemia (D64.9) Active confirmed Problem History of malignant neoplasm of testis (871760169) History of testicular cancer (Z85.47) Active confirmed Vital Signs Heart Rate 60 /min 10/27/2024 Temperature 97.8 degrees Fahrenheit 10/27/2024 Blood pressure diastolic 72 mm Hg 10/27/2024 Height 5ft 6in in 10/27/2024 Blood pressure systolic 100 mm Hg 10/27/2024 Weight 148 lbs 10/27/2024 BMI 23.89 kg/m2 10/27/2024 Encounters Encounter Location Date Provider Diagnosis [facility] [address] [place] [address] [facility] [address] [place], [place] [address] 09/03/2024 Provider Migration [facility] [address] [facility] [address] [place], [place] [address] 03/29/2024 Sarah Florence Medicare annual wellness visit, subsequent Z00.00 ; BMI 24.0-24.9, adult Z68.24 ; History of testicular cancer Z85.47 ; Coronary artery disease involving [place] coronary artery of [place] heart without angina pectoris I25.10 ; Mixed dyslipidemia E78.2 ; Finger pain, right M79.644 and Nonrheumatic aortic valve insufficiency I35.1 [facility] [address] [place] [address] [facility] [address] [place], [place] [address] 10/27/2024 Tamela Shore Coronary artery disease involving [place] coronary artery of [place] heart without angina pectoris I25.10 ; Mild anemia D64.9 ; Mixed dyslipidemia E78.2 and Nonrheumatic aortic valve insufficiency I35.1 [facility] [address] [place] [address] 02/23/2024 Rickey Rome [facility] [address] [place] [address] 11/16/2024 Tamela Shore [facility] [address] [place] [address] 02/01/2025 aTmela Shore Coronary artery disease involving [place] coronary artery of [place] heart without angina pectoris I25.10 ; Mixed dyslipidemia E78.2 and Mild anemia D64.9 [facility] [address] [place] [address] 02/01/2025 Tamela Shore Assessments Encounter Date Diagnosis (ICD Code) Assessment Notes Treatment Notes Treatment Clinical Notes Section Notes 03/29/2024 Medicare annual wellness visit, subsequent (ICD-10 - Z00.00) 03/29/2024 BMI 24.0-24.9, adult (ICD-10 - Z68.24) normal 10/27/2024 Coronary artery disease involving [place] coronary artery of [place] heart without angina pectoris (ICD-10 - I25.10) stable, following with cardiology, asymptomatic 10/27/2024 Mild anemia (ICD-10 - D64.9) reviewed labs, very mild normocytic anemia. he has already started OTC iron and B12 supplements just recently. eats fairly restrictive diet with limited meats. recommend repeat CBC with anemia studies in 6-12 weeks and he is agreeable. no obvious signs of blood loss but we reviewed those and he will monitor 02/01/2025 Coronary artery disease involving [place] coronary artery of [place] heart without angina pectoris (ICD-10 - I25.10) 02/01/2025 Mixed dyslipidemia (ICD-10 - E78.2) 02/01/2025 Mild anemia (ICD-10 - D64.9) 03/29/2024 History of testicular cancer (ICD-10 - Z85.47) followed annually by surgical oncologist 10/27/2024 Mixed dyslipidemia (ICD-10 - E78.2) tolerating management...we reviewed his lipid panel which he will discuss with cardiology. could certainly consider stopping zetia 10/27/2024 Nonrheumatic aortic valve insufficiency (ICD-10 - I35.1) asymptomatic, echo done recently 03/29/2024 Coronary artery disease involving [place] coronary artery of [place] heart without angina pectoris (ICD-10 - I25.10) stable, following with cardiology, asymptomatic 03/29/2024 Mixed dyslipidemia (ICD-10 - E78.2) tolerating management 03/29/2024 Finger pain, right (ICD-10 - M79.644) symptoms limited to morning, recommend splinting at night as tolerated 03/29/2024 Nonrheumatic aortic valve insufficiency (ICD-10 - I35.1) asymptomatic, echo every 1-2 years Plan Of Treatment Pending Test Test Name Order Date M-Complete Blood Count Auto Diff 025 M-Comprehensive Metabolic Panel 02/02/20 25 M-Hemoglobin A1C 02/01/2025 M-Ferritin 02/01/2025 M-Lipid Panel 02/01/2025 M-Free T4 (Free Thyroxine) 02/01/2025 M-Thyroid Stimulating Hormone 02/01/2025 M-Vitamin B12 02/01/2025 M-Folate 02/01/2025 M-Iron and TIBC 02/01/2025 Next Appt Details Provider Name:Tamela Weeks Karly ce, 02/23/2025 09:15:00 AM, [address] [facility], [address], [place], [address], Insurance Providers Payer Name Payer Address Payer Phone Subscriber Number Group Number Insured Name Patient Relationship to Insured Coverage Start Date Coverage End [place] [address] [place] [phone] [id number] Dov Gamboa Self - patient is the insured [facility] [address] [place] [address] [id number] Dov Gamboa Self - patient is the insured Medical (General) History Medical History History ICD Code testicular cancer 1989 Surgery and chemo x 6 months heart disease/ CAD [place] 2005 ([place]) Aortic Regurgitation, mild to moderate Surgical History Surgery Date(Month/Year) Heart Cath x 1 stent Resection of testicular cancer and invol smith retroperitoneal nodes colonoscopy 09/2024 Hospitalization History Reason Date(Month/Year) [place] 2005 Surgeries
--- OUTSIDE RECORDS SUMMARY | 2025-02-18 09:32 | XMS_ITS | Encounter Summary ---
Author Organization [facility] Address [address] [place] [address] Care Team Providers Care Ergonomics Technician Name Role Phone Tamela Shore AJAY Primary Care Provid er Reason for Visit * Reason Onset Date Comments Med Refill 12/21/2024 Encounter Details Date Type Department Care Team (Late st Contact Info) Description 12/21/2024 Refill [facility] [address] [facility] [address] [place] [address] Randell Multani MD [address] [facility] [address] [place], [place] [id number] Med Refill Social History Tobacco Use Types [...] Description 12/20/2025 9:15 AM EDT Office Visit [facility] [address] [place] [address] Sana Melendrez APRN [address] [facility] [address] [place] [address] documented as of this encounter Visit Diagnoses Not on filedocumented in this encounter Care Teams Ergonomics Technician Relationship Specialty Start Date End Date Tamela Shore APRN [address] [place] [facility] [address] [place] [address] PCP - General Family Medicine 08/12/24 documented as of this encounter
--- OUTSIDE RECORDS SUMMARY | 2025-02-18 09:32 | XMS_ITS | Patient Health Record ---
Author Organization [id number] [facility] Address [address] [facility] [address] [place], [place] [id number] Care Team Providers Care Optical Manager Name Role Phone VERONICA ZELAYA, CAROLYN Primary Care Provider Kim vailable Reason For Referral No Information Medications Medication SIG (Take, Route, Fr equency, Duration) Notes Start Date End Date Status Lisinopril Unknown Mobic 15 MG 1 tablet Orally Once a day for 30 day(s) 10/09/2020 Active Mobic 15 MG 1 tablet Orally Once a day for 30 day(s) 08/02/2020 Active Mobic 15 MG 1 tablet Orally Once a day for 30 day(s) 06/28/2020 Active Aspirin 81 Unknown Ezetimibe Unknown Metoprolol Succinate Unknown Atorvastatin Calcium Unknown Plan Of Treatment Pending Test Test Name Order Date CR- HIP 2-3V WITH PELVIS LEFT (24416)(Sc Image-[id number]) 06/28/2020 CR- SHOULDER COMPLETE RIGHT(ScImage-SHCR ) ([id number]) 06/21/2020 Insurance Providers Payer Name Payer Address Payer Phone Subscriber Number Group Number Insured Name Patient Relationship to Insured Coverage Start Date Coverage End Date MEDICARE [place] PART B [address] [place], [place] [phone] [id number] Dov Gamboa Self - patient is the insured [facility] MEDICARE SUPP ALL [place] [address] [facility] [place] [phone] [id number] Dov Gamboa Self - patient is the insured Medical (General) History Medical History History ICD Code Heart disease I51.9 Osteoporosis M81.0 Surgical History Surgery Date(Month/Year) back surgery heart stent lymph node resection
--- OUTSIDE RECORDS SUMMARY | 2025-02-18 09:32 | XMS_ITS | Encounter Summary ---
Author Organization [facility] Address [address] [place] [address] Care Team Providers Care Apartment Leasing Consultant Name Role Phone MoneTamela Spring MOSS Primary Care Provid er Encounter Details Date Type Department Care Team (Latest Contact Info) Description 12/29/2024 Travel Social History Tobacco Use Types Packs/Day [...] Description 12/20/2025 9:15 AM EDT Office Visit [facility] [address] [place] [address] Sana Melendrez APRN [address] [facility] [address] [place] [address] documented as of this encounter Visit Diagnoses Not on filedocumented in this encounter Care Teams Apartment Leasing Consultant Relationship Specialty Start Date End Date Tamela Shore APRN [address] [place] [address] PCP - General Family Medicine 08/12/24 documented as of this encounter
[2025-02-18 10:14] LABS: Albumin Level 4.8 g/dl (3.5-5.0); Chloride 102 mmol/L (98-107); Potassium 4.2 mmoL/L (3.5-5.1); Sodium 140 mmol/L (136-145)
[2025-02-18 10:16] LABS: Alanine Aminotransferase 25 U/L (12-78); Anion Gap 15.2 mEq/L (5-15); Aspartate Amino Transferase 32 U/L (17-59); Blood Urea Nitrogen 18 mg/dl (9-20); Carbon Dioxide 27 mmol/L (22.0-30.0); Creatinine,Serum 0.80 mg/dl (0.66-1.25); Estimated Glomerular Filt Rate 95 ml/min (>60); GFR (African American) 115 ML/MIN (>60)
[2025-02-18 10:17] LABS: Albumin/Globulin Ratio 1.8 (1.1-1.8); Alkaline Phosphatase 69 U/L (38-126); Bilirubin,Total 1.2 mg/dl (0.2-1.3); Calcium 9.6 mg/dl (8.4-10.2); Cholesterol 164 mg/dl (140-200); Globulin 2.7 g/dL (1.3-3.2); Glucose 105 mg/dl (74-100); HDL Cholesterol 79 mg/dl (40-60); Iron 155 ug/dL (49-181); Total Protein,Serum 7.5 g/dl (6.3-8.2); Triglycerides 126 mg/dl (30-150)
[2025-02-18 10:24] LABS: Hematocrit 44.5 % (42.0-52.0); Hemoglobin 14.9 g/dL (14.1-18.0); Immature Granulocytes % 0.3 %; Mean Corpuscular HGB Conc 33.5 g/dL (31.8-35.4); Mean Corpuscular Hemoglobin 30.8 pg (27.0-31.2); Mean Corpuscular Volume 92.1 fl (80-94); Nucleated Red Blood Cells % 0 %; Platelet Count 246 K/mm3 (142-424); Red Blood Count 4.83 M/mm3 (4.60-6.20); Red Cell Distribution Width-SD 44.1 fL; White Blood Count 6.2 K/mm3 (4.8-10.8)
[2025-02-18 10:27] LABS: Total Iron Binding Capacity 291 ug/dL (261-462)
[2025-02-18 10:48] LABS: Thyroid Stimulating Hormone 3.51 uIU/mL (0.465-4.68)
[2025-02-18 10:52] LABS: Ferritin 120 ng/ml (17.9-464)
[2025-02-18 11:12] LABS: Free T4 (Free Thyroxine) 0.82 ng/dl (0.78-2.19)
[2025-02-18 12:12] LABS: Folate > 20.00 ng/mL
[2025-02-18 12:39] LABS: Hemoglobin A1C 6.0 % (4.0-6.0)
[2025-02-18 13:47] LABS: Vitamin B12 860 pg/mL (239-931)
== END 2025-02-18 23:59 | disposition home or self-care (01) ==
LOC: LAB 09:29
PROVIDERS: PCP Nurse Practitioner Family; Visit Provider Nurse Practitioner Family
DX: I25.10 Atherosclerotic heart disease of native coronary artery without angina pectoris (principal); D64.9 Anemia, unspecified; E78.2 Mixed hyperlipidemia
CPT/HCPCS: 36415; 80053; 80061; 82607; 82728; 82746; 83036; 83540; 83550; 84439; 84443; 85025